=== PATIENT | female | born 1985 | race Caucasian/White ===

== ENCOUNTER 2017-06-30 09:11 | Day surgery (SDC) | payer OTHER ==
--- NOTE | 2017-06-29 22:00 | PDGENHP ---
History and Physical - Chief Complaint Left Hip Pain - History of Present Illness 1. Bilateral~Femoroacetabular impingement (ETHEL) Cam type, with~resultant labral tear 2. Bilateral~Hip Dyplasia; RIGHT SIDE SYMPTOMATIC 3. Hyperlaxity syndrome HISTORY OF PRESENT ILLNESS: Zaidis a 31 y.o.~active female~who I have had the pleasure to consult on today. I have enjoyed meeting her. She~lives in [place]. ~Zaidworks in a [employer]. ~She~is single; she~has no~children. ~Zaid enjoys running, hiking, and rollerblading. ~She stopped running in January 2016. Vibha's right~hip pain~started in April 2016 but started having back pain in September 2015, with no~recalled trauma or injury, and with no~previous complaints. Zaidhas~a known history of hip dysplasia. Presentation today is of anterolateral right~hip pain. ~The hip does not~wake her~at night and does~click and catch on her. Sitting can be a real struggle~ for her. Zaiddoes not~report suffering from lower back pain episodes currently. Zaidhas~participated in physical therapy (February 2016-March 2016)~and has~ tried other conservative measures including lidocaine hip injection (06/2016) which gave her 100% relief fir a short term,~and chiropractic treatments. She~ has not~received sufficient symptomatic improvement. She saw Dr. Vinicio Lucero in June 2016 who told her she has bilateral hip dysplasia. Zaidhas~utilized medication for pain management, including NSAID~and Tramadol. Zaidhas used medication since the pain began. Zaiddenies issues with the left~hip. ~ Zaidunderstands that she~has a hip and pelvis problem which should be researched and wishes to get a better understanding of her~hip status, followed by an establishment of a treatment strategy, hoping she~would be able to get back to her~well being active life. History: Past medical history: ~ None which is relevant Relevant familial history: None which is relevant Past surgical history: None Zaiddenies problematic issues with general anesthesia in the past. I have reviewed, verified and agree with the past medical, surgical, family and social history. Current Medications:~has a current medication list which includes the following prescription(s): ibuprofen. ALLERGIES:~has No Known Allergies. Objective: Physical Examination: Zaidis 5~feet 5~inches tall and weighs 140~Lbs. Zaidis AAO x3; she~is well- nourished, in NAD. Skin is warm and dry. ~Breathing is non-labored. ~CV with RRR by pulse. Abdomen is soft, NTND. Currently, she~walks with a normal~gait. Trendelenburg sign is negative~and proprioception is reduced, right~side. She~presents with severe~signs of joint laxity. Beightons Score: 7 Lower spine examination is negative~for sciatic or femoral nerve irritation with negative~SLR &~femoral stretch tests. Range of motion of the spine is normal~for flexion, extension, and rotations, with no~associated pain. Strength, Sensation and pulses are normal - bilaterally Ankles and knees exams are normal~and no~mal-alignment is evident. She~has no leg length discrepancy. Thigh circumference is symmetric~with no evidence for muscle atrophy~on both~ sides. Hip ROM (degrees): FL ER At 90~hip FL IR At 90~hip FL AB AD EX IR Neutral hip ER Neutral hip R 115 50 15 45 5 10 50 30 L 110 55 20 40 10 10 50 30 Specific hip and pelvis tests: Quadrant AMIE Roll Add. Longus R +++ +++ Negative + L Negative Negative Negative Negative Glut. Med ITB Pos. Imp R Negative 4/5 strength +++ 4/5 strength Negative L Negative 5/5 strength Negative 5/5 strength Negative Squeeze test measured normal Bony Symphysis pubis is pain free~to touch while concentric activity of the rectus abdominis, does~produce pain at its insertion on the right side. Ilio Psos specific tests are negative for pain during cycling for both hips~and remarkable for non painful snap HF has good strength no pain both hips. No~capsule tenderness. Greater trochanteric burse is pain free~on both hips. Piriformis tests: FAIR is negative, with no~local signs of neuritis related to sciatic nerve. SIJs examination is normal~with normal~AMIE in relation and local tenderness. Hamstrings tests are negative~functional contraction and negative for tendonopathy in ~both hips. On a daily basis, the following percentages reflect Vibha's overall total pain: Deep hip: 100% Imaging: Radiology studies which I have personally reviewed, analyzed and measured are below: XR: AP of the hip and pelvis: Performed in a good~technique Coccyx to pubic symphysis distance 1.5~cm. 0 degrees [place] Lines are interrupted. Minimal~Pathological signs are seen in the Symphysis Pubis. Minimal~Pathological signs are seen at the Ischial tuberosity. ~ Specific measurements show: NSA~ LCE Sourcil~Angle Sharp's angle Lat. Cam Lat. Pincer C.Over~sign Head~Coverage % ATDmm R N 24 11 46 + - 12-12:30 72 N L N 20 13 45 + - 12-12:30 71 N Pos. wall sign ISS NAD ~~Dysplasia Comments R Negative Negative 13.2~mm ++ L Negative Negative 14.9~mm ++ Sclerosis Sup. Lat. OA Cysts Joint Space-WBZ Joint Space-Medial R Negative Negative Negative 4.3~mm 4.4~mm L Negative Negative Negative 5.3~mm 4.3~mm X Table lateral: Anterior cam lesion is seen~on both hips. Alpha Angle: ~ Right 72~dergrees Left 65~degrees Impression and plan: Zaidis a 31 y.o.~active female~suffering from symptomatic right~hip pain due to Bilateral~Hip Dyplasia~and cam type ETHEL with labral tear causing significant disability to her~and altering her~sport and life activities. Physical examination, imaging, and her~story correspond with the diagnosis mentioned above. I explained that hip dysplasia is a condition wherein the hip joint has excessive play~and instability due to a variety of factors, including the depth and adequacy of the socket, the orientation of the femur bone, and ligament laxity around the hip joint. Dysplasia ranges in severity from borderline to tiffany, with treatment options being specific to the specific nature of the problem. Left untreated, the instability in the hip joint can cause progressive tearing of the labrum and deterioration of the surface cartilage, ultimately resulting in progressive osteoarthritis of the hip. I explained that femoroacetabular impingement (ETHEL - Cam type) arises due to a bony or soft tissue conflict between the femur (ball) and acetabulum (socket) caused by an abnormality in the shape of the femoral head and neck. Over time, repetitive impingement can result in damage to the labrum and adjacent surface cartilage within the socket, ultimately giving rise to progressive osteoarthritis of the hip. I explained that although a labral tear can be a source of pain, it is rarely the root of the problem and typically occurs secondary to an underlying abnormality in the shape and mechanics of the hip joint. I reviewed conservative treatment options for Dysplasia and ETHEL including activity modification to avoid positions of impingement or instability, physical therapy, non-steroidal anti-inflammatory medications, and various injections (corticosteroid and PRP) aimed at reducing inflammation in the hip joint or/and preventing dynamic instability and impingement. PRP injections may promote healing and reduce symptoms in certain cases but it will not repair chronically damaged tissue. Although these measures may help to buy time~and reduce current level of symptoms, they are not a definitive solution to the problem given the underlying abnormality in the shape of the hip joint. Patients who have failed conservative management and continue to experience symptoms are candidates for definitive surgical treatment, which may consist of hip arthroscopy alone or in combination with more invasive bony realignment procedures of the hip socket and/or femur called periacetabular osteotomy (HNERIK) or derotational femoral osteotomy (DFO). Hip arthroscopy typically includes treating the labrum with either repair or reconstruction of the torn labrum; as well as addressing the underlying abnormalities by restoring the normal shape to the hip joint. If the cartilage is damaged a Microfracture surgical procedure may also be necessary to help stimulate the growth of fibrocartilage. If a patient requires a labral reconstruction or a Microfracture, the initial rehabilitation from the surgery may take longer, but the fpc results are typically favorable. I reviewed the technical aspects of periacetabular osteotomy (HENRIK) including risks, benefits, and expected course of recovery. Vibha~understands that HENRIK is an inpatient procedure carried out through two medium sized incisions on the front and back of the hip joint. The hip socket is cut, realigned, and stabilized with 2 3 internal screws. Risks include infection, bleeding, injury to nearby nerves or vessels, stiffness, persistent pain, instability, failure of bony healing, implant related complications, and venous thromboembolic disease. Rarely, revision surgery may be required to address these problems. Risks, potential complications, side effects and recovery from surgical procedure were discussed in length. We explained how this surgery is an open procedure, and though patients tend to do well in the long-term, it involves significant pain in the first 2-4 weeks post-op and a rather lengthy rehab.~Overall recovery takes approximately 6 12~months depending on the extent of damage and degree of repair. Zaidunderstands that she~will undergo hip arthroscopy 1 week prior to the HENRIK to address damage inside the hip joint. Zaidunderstands that hip arthroscopy and HENRIK are two separate procedures that are best performed one week apart, with the arthroscopy commencing first to "tighten up" any pathology evident in the hip joint (labral repair, etc.) and the HENRIK open procedure occurring 7-10 days later to realign the acetabulum. Zaidwill review the info presented. In order to obtain more detailed information regarding the alignment, orientation, and shape of the bony hip and pelvis I will order a CT scan to be performed. The results of the CT scan, including femoral torsion and acetabular version measured values and 3D images, will aid me in deciding on the best treatment strategy and surgical pre-planning. Zaidwill contact us if she~wishes to pursue further treatment in the future. Zaidis happy with this plan. I have also supplied her~with handouts, outlining the expected surgical treatment and rehab involved. I wish~Zaidall the best, ~~ MATHEUS Lira History Information - Allergies/Home Medication List Allergies/Adverse Reactions: No Known Allergies Allergy (Unverified 06/11/17 10:04) Home Medications: Ibuprofen 06/11/17 [Last Taken Unknown] Tylenol ES 500 mg (*) 06/11/17 [Last Taken Unknown] I have personally reviewed and updated: medical history - Social History Smoking Status: Current some day smoker Review of Systems Review of Systems: Physical Exam Physical Exam:
--- NOTE | 2017-06-30 09:05 | PDANEPAE ---
ANE History of Present Illness left hip scope ANE Past Medical History - Cardiovascular History Hx Hypertension: No Hx Arrhythmias: No Hx Chest Pain: No Hx Coronary Artery / Peripheral Vascular Disease: No Hx CHF / Valvular Disease: No Hx Palpitations: No - Pulmonary History Hx COPD: No Hx Asthma/Reactive Airway Disease: No Hx Recent Upper Respiratory Infection: No Hx Oxygen in Use at Home: No Hx Sleep Apnea: No Sleep Apnea Screening Result - Last Documented: Negative - Neurologic History Hx Cerebrovascular Accident: No Hx Seizures: No Hx Dementia: No - Endocrine History Hx Diabetes: No Obesity: no - Renal History Hx Renal Disorders: No Renal History Comment: tx for recent UTI - Liver History Hx Hepatic Disorders: No - Neurological & Psychiatric Hx Hx Neurological and Psychiatric Disorders: No - Cancer History Hx Cancer: No - Congenital Disorder History Hx Congenital Disorders: No - GI History Hx Gastrointestinal Disorders: No - Other Health History Other Health History: L labral tear. occ R hip stiffness - Chronic Pain History Chronic Pain: Yes (L hip) - Surgical History Prior Surgeries: R HENRIK. R hip scope ANE Review of Systems Review of systems is: negative Review of Systems: - Exercise capacity METS (RN): 4 METS ANE Patient History - Allergies Allergies/Adverse Reactions: No Known Allergies Allergy (Unverified 06/11/17 10:04) - Home Medications Home medications: home medication list seen and reviewed Home Medications: Ibuprofen 06/11/17 [Last Taken Unknown] Tylenol ES 500 mg (*) 06/11/17 [Last Taken Unknown] - Anes Hx Anes Hx: post operative nausea - Smoking Hx Smoking Status: Current some day smoker ANE Labs/Vital Signs - Vital Signs Height: 165.1 cm Weight: 63.503 kg ANE Physical Exam - Airway Neck exam: FROM Mallampati Score: Class 2 Mouth exam: normal dental/mouth exam, small mouth opening - Pulmonary Pulmonary: no respiratory distress - Cardiovascular Cardiovascular: regular rate and rhythym - ASA Status ASA Status: I ANE Anesthesia Plan Anesthesia Plan: general endotracheal anesthesia
[2017-06-30] MEDS ORDERED: BUPIVACAINE 0.25% 30 ML SDV ONE (09:16)
[2017-06-30] MEDS ORDERED: EPINEPHrine 30 MG/30 ML MDV (0.1 MG/0.1 ML) ONE (09:16)
[2017-06-30] MEDS ORDERED: ceFAZolin 2 GM/SWFI 2 GM/20 ML SYR IVP ONE (09:18)
[2017-06-30] MEDS ORDERED: PREGABALIN 150 MG CAP PO ONE (09:18)
[2017-06-30] MEDS ORDERED: ACETAMINOPHEN 500 MG TAB PO ONE (09:18)
[2017-06-30] MEDS ORDERED: LR 1,000 ML IV ONE (09:19)
[2017-06-30] MEDS ORDERED: LIDOCAINE 1% 2 ML INJ ID PRN (09:19)
[2017-06-30] MEDS ORDERED: MIDAZOLAM 2 MG/2 ML VIAL IVP ONE (09:47)
[2017-06-30] MEDS ORDERED: PROPOFOL/EMULSION 500 MG/50 ML BOTTLE IV ONE (09:54)
[2017-06-30] MEDS ORDERED: fentaNYL 100 MCG/2 ML INJ ONE ×2 (09:54→13:19)
[2017-06-30] MEDS ORDERED: PROPOFOL 200 MG/20 ML VIAL ONE (09:54)
[2017-06-30] MEDS ORDERED: REMIFENTANIL HCL 1 MG VIAL ONE (09:54)
[2017-06-30] MEDS ORDERED: DEXAMETHASONE 4 MG/ML VIAL ONE (09:56)
[2017-06-30] MEDS ORDERED: LIDOCAINE 2% 5 ML SDV ONE (09:56)
[2017-06-30] MEDS ORDERED: ONDANSETRON 4 MG/2 ML VIAL ONE (09:56)
[2017-06-30] MEDS ORDERED: ROCURONIUM 50 MG/5 ML VIAL ONE (09:56)
[2017-06-30] MEDS ORDERED: PHENYLEPHRINE HCL 100 MCG/ML SYR ONE (10:22)
[2017-06-30] MEDS ORDERED: epHEDrine SULFATE 10 MG/ML SYR ONE ×3 (10:34→12:51)
[2017-06-30] MEDS ORDERED: oxyCODONE IR 5 MG TAB PO PRN (12:49)
[2017-06-30] MEDS ORDERED: HYDROCODONE/APAP 5/325 TAB PO PRN (12:49)
[2017-06-30] MEDS ORDERED: METOCLOPRAMIDE 10 MG/2 ML VIAL IVP PRN (12:49)
[2017-06-30] MEDS ORDERED: ONDANSETRON 4 MG/2 ML VIAL IVP PRN (12:49)
[2017-06-30] MEDS ORDERED: ALBUTEROL 3 ML DEYVIAL IH PRN (12:49)
[2017-06-30] MEDS ORDERED: PROMETHAZINE HCL 25 MG/ML INJ IVP PRN (12:49)
[2017-06-30] MEDS ORDERED: HYDROmorphONE/DILAUDID 2 MG/ML INJ IVP PRN (12:49)
[2017-06-30] MEDS ORDERED: ACETAMINOPHEN 500 MG TAB PO PRN (12:49)
[2017-06-30] MEDS ORDERED: NALOXONE HCL 0.4 MG/ML INJ IVP PRN (12:49)
[2017-06-30] MEDS ORDERED: LR 500 ML IV PRN (12:49)
--- NOTE | 2017-06-30 13:18 | POSTANESTH ---
Post Anesthetic Evaluation Cardiovascular Status: Normal, Stable Respiratory Status: Normal, Stable Level of Consciousness/Mental Status: Can Participate in Eval Pain Control: Adequate, Prn Tx Ordered Nausea/Vomiting Control: Adequate, Prn Tx Ordered Complications Possibly Related to Anesthesia: None Noted
[2017-06-30] MEDS: fentaNYL 100 MCG/2 ML INJ IVP PRN ×2 (13:22→13:41)
[2017-06-30 15:26] VITALS: BP 109/60
== END 2017-06-30 15:05 | disposition home or self-care (01) ==
LOC: FSGY 09:11
PROVIDERS: ATTEND Orthopaedic Surgery Sports Medicine
PROC: 0SQB4ZZ Repair Left Hip Joint, Percutaneous Endoscopic Approach (ICD-10-PCS; principal; 2017-06-30 11:00)
DX: S73.192A Other sprain of left hip, initial encounter (principal); M24.152 Other articular cartilage disorders, left hip; Z87.891 Personal history of nicotine dependence
CPT/HCPCS: C1713; J0171; J0690; J1100; J2250; J2370; J2405; J2704; J3010